=== PATIENT | female | born 1960 | race Caucasian/White ===

== ENCOUNTER → 2016-12-28 | Outpatient (CLI) | payer BC ==
[~2016-12-28] MED LIST: ZOLOFT PO
--- NOTE | ~2016-12-28 | MY29 ---
[facility] A Service of [facility] RADIOLOGY TEXT RESULTS PATIENT: HANY LONGORIA LOCATION: [facility] : 58 UNIT #: [id number] AGE: [address]: Addie Avila APRN SEX: F ORDER DR: [id number] [facility] [address] [place], [place] [address] [id number] O MR#: [id number] Acc #: [id number] NAME: HANY LONGORIA : 1960 SEX: F STUDY DATE/TIME: 12/28/2016 10:01 UNIT: [facility] ROOM: STUDY DESCRIPTION: MY ANDREA SCREENING W/ CAD BILAT Attending Physician: Addie Avila A.P.R.N. Referring Physician: Addie Avila A.P.R.N. Ordering Physician: Addie Avila A.P.R.N. Primary Care Physician: Addie Avila A.P.R.N. MEDICAL IMAGING REPORT This report is preliminary unless electronic signature is present EXAM Bilateral digital screening mammogram with CAD 12/28/2016 INDICATIONS 55-year-old female for routine screening. No reported problems. No personal or family history of breast cancer. No surgeries. TECHNIQUE CC and MLO views of the breasts obtained and reviewed with a FDA-approved CAD device. COMPARISON STUDIES 11/04/2015, 11/08/2009, 01/25/2006. FINDINGS Breast parenchyma is composed of scattered fibroglandular densities. The pattern is unchanged. There is no new dominant nodule mass or suspicious clustered microcalcification. IMPRESSION 1. Negative screening mammogram. 1 year followup recommended. BIRADS: 1 Negative. Patients over the age of 40 are entered into a reminder system with target due date for the next mammogram. A result letter will also be sent to the patient. Dictated by... Osito Monique M.D. [facility] A Service of [facility] RADIOLOGY TEXT RESULTS PATIENT: HANY LONGORIA LOCATION: [facility] : 58 UNIT #: [id number] AGE: [address]: Addie Avila APRN SEX: F ORDER DR: THIS IS AN ELECTRONICALLY VERIFIED REPORT Osito Monique M.D. at 12/28/2016 6:07 PM SRINI/anu TD: 12/28/2016 17:44 JOB #: [id number] MEDICAL IMAGING REPORT Page 1 of 1 COPY
== END | disposition home or self-care (01) ==
LOC: CWCC 09:39
DX: Z12.31 Encounter for screening mammogram for malignant neoplasm of breast (principal)
CPT/HCPCS: G0202